=== PATIENT | male | born 2000 | race Caucasian/White ===

== ENCOUNTER 2024-04-08 11:02 | Emergency (ER) | payer OTHER ==
--- NOTE | 2024-04-08 12:42 | ED Physician Documentation ---
History of Present Illness - Stated complaint Stated Complaint: CP, N, DIZZY - Chief complaint Chief Complaint: Cardiac - Additonal information Additional information: 24-year-old male with history of anxiety and patient says a couple of the broken bones presents emergency department for left chest pain and right frontal lobe headache. Patient says last night when he is turned to fall asleep around 3 AM he started noticing some left pectoral pain. He said he tried to sleep it off but he has been having a hard time doing so he brought his kids to childcare this morning and has not been able to fall back asleep because he then started experiencing a headache to the right frontal lobe. He says he feels very off. He has no family history of sudden cardiac or anyone young in his family having any cardiac disease and he denies anything like this ever happening to him before. He has not taken any medicine for his the right headache or his chest pain. He says that he cannot think of anything strenuous that he has done to cause left chest pain. No fevers or chills no vomiting he does endorse intermittent mild nausea. PD PAST MEDICAL HISTORY - Past Medical History Past Medical History: No Cardiovascular: None Respiratory: None Neuro: None Endocrine/Autoimmune: None GI: None : None HEENT: None Psych: None Musculoskeletal: None Derm: None - Past Surgical History Past Surgical History: No - Present Medications Home Medications: Ambulatory Orders Medication Instructions Recorded Confirmed No Known Home Medications 04/08/24 04/08/24 - Allergies Allergies/Adverse Reactions: Allergies Allergy/AdvReac Type Severity Reaction Status Date / Time No Known Drug Allergies Allergy Verified 04/08/24 11:22 - Social History Does the pt smoke?: No Smoking Status: Never smoker Does the pt drink ETOH?: Yes Does the pt have substance abuse?: No - Immunizations Immunizations are current?: Yes - POLST Patient has POLST: No PD ED PE NORMAL - Vitals Vital signs reviewed: Yes - General General: Alert and oriented X 3, No acute distress, Well developed/nourished - HEENT HEENT: Atraumatic, PERRL - Neck Neck: Supple, no meningeal sign - Cardiac Cardiac: RRR, No murmur, Strong equal pulses - Respiratory Respiratory: No respiratory distress - Abdomen Abdomen: Normal bowel sounds, Soft, Non tender, Non distended, No organomegaly - Derm Derm: Normal color, Warm and dry, No rash - Neuro Neuro: Alert and oriented X 3, 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 Relevant findings are: Rate: Rate (enter#) (65) Rhythm: NSR [place]: Normal Intervals: Normal [place] QRS: Normal Ischemia: Normal ST segments Computer interpretation: Agree with computer - Labs Labs: Laboratory Tests 04/08/24 04/08/24 12:42 12:42 WBC 7.7 RBC 5.51 Hgb 16.5 Hct 48.4 MCV 87.8 MCH 29.9 MCHC 34.1 RDW 12.2 Plt Count 266 MPV 8.8 Neut # (Auto) 3.6 Lymph # (Auto) 3.3 Schley # (Auto) 0.5 Eos # (Auto) 0.2 Baso # (Auto) 0.1 Absolute Nucleated RBC 0.00 Nucleated RBC % 0.0 Sodium 139 Potassium 3.5 Chloride 103 Carbon Dioxide 31 Anion Gap 5.0 L BUN 11 Creatinine 0.9 Estimated GFR (MDRD) 103 Glucose 94 Calcium 10.0 Total Bilirubin 0.9 AST 19 ALT 18 Alkaline Phosphatase 53 Troponin I High Sens < 2.3 L Total Protein 7.4 Albumin 4.8 Globulin 2.6 Albumin/Globulin Ratio 1.8 Lipase 18 - Rads (name of study) Chest x-ray Relevant Findings:: Final report received, EMP independent interpretation of test, Other (No acute cardiopulmonary abnormalities) PD Medical Decision Making - ED course ED course: 24-year-old male presents emergency department for left-sided chest pain and headache. Exam without evidence of volume overload so doubt heart failure. EKG without signs of active ischemia. Given the timing of pain to ER presentation, single troponin was negative so doubt NSTEMI. Presentation not consistent with acute PE (PERC negative), pneumothorax (not visualized on chest xr), thoracic aortic dissection, pericarditis, tamponade, pneumonia (no infectious symptoms, clear chest xr), myocarditis (no recent illness, neg trop). HEART score: 0. Patient was given Tylenol and Toradol for his left-sided chest pain that was reproducible as well as his headache and this almost completely alleviated his symptoms of his headache as well as his left chest pain. He does not have any dizziness nor blurred vision he says that he is actually feeling significantly better and he feels comfortable to discharge at this time. He is given strict ER return precautions he is told to follow-up with his primary care provider outpatient about todays ER visit and further evaluation. Departure - Departure Disposition: Home, Self Care Clinical Impression: Chest pain Qualifiers: Chest pain type: unspecified Qualified Code(s): R07.9 - Chest pain, unspecified Headache Qualifiers: Headache type: tension-type Headache chronicity pattern: acute headache Intractability: not intractable Qualified Code(s): G44.209 - Tension-type headache, unspecified, not intractable Instructions: ED Chest Pain Atypical Unkn Cause Comments: Thank you for trusting us with your care. I believe that you would greatly benefit from more sleep. Sometimes taking something as simple as melatonin to help you get a good nights rest is a good place to start. Please follow-up with your primary care provider about today's ER visit and please have a very low threshold to come back to the ER if you have any worsening symptoms. It seems like the Toradol shot that we gave you as well as the Tylenol has significantly alleviated your headache and chest pain. Again if you are concerned about any symptoms please come back to the ER for further evaluation and workup. Forms: PCP List Discharge Date/Time: 04/08/24 14:00
--- NOTE | 2024-04-08 12:43 | XRAY Report ---
PROCEDURE: Chest 1V INDICATIONS: Chest Pain TECHNIQUE: One view of the chest was acquired. COMPARISON: None. FINDINGS: Surgical changes and devices: None. Lungs and pleura: No pleural effusions or pneumothorax. Lungs are clear. Mediastinum: Mediastinal contours appear normal. Heart size is normal. Bones and chest wall: No suspicious bony lesions. Overlying soft tissues appear unremarkable. IMPRESSION: No acute cardiopulmonary process. Reviewed by: Jose Carlos Hernandez MD on 04/08/2024 12:42 PM PDT Approved by: Jose Carlos Hernandez MD on 04/08/2024 12:42 PM PDT Station ID: [id number]
[2024-04-08 12:45] LABS: BASOPHILS # (AUTO) 0.1 10^3/uL (0.0-0.1); BASOPHILS % (AUTO) 0.8 %; EOSINOPHILS # (AUTO) 0.2 10^3/uL (0.0-0.7); EOSINOPHILS % (AUTO) 2.8 %; HCT - HEMATOCRIT 48.4 % (42.0-52.0); HGB - HEMOGLOBIN 16.5 g/dL (14.0-18.0); LYMPHOCYTES # (AUTO) 3.3 10^3/uL (1.5-3.5); LYMPHOCYTES % (AUTO) 43.1 %; MEAN CORPUSCULAR HEMOGLOBIN 29.9 pg (27.0-31.0); MEAN CORPUSCULAR HGB CONC 34.1 g/dL (32.0-36.0); MEAN CORPUSCULAR VOLUME 87.8 fL (80.0-94.0); MEAN PLATELET VOLUME 8.8 fL (7.4-11.4); MONOCYTES # (AUTO) 0.5 10^3/uL (0.0-1.0); NEUTROPHILS # (AUTO) 3.6 10^3/uL (1.5-6.6); NEUTROPHILS % (AUTO) 46.9 %; PLT - PLATELET COUNT 266 10^3/uL (130-450); RED BLOOD COUNT 5.51 10^6/uL (4.70-6.10); RED CELL DISTRIBUTION WIDTH 12.2 % (12.0-15.0); WHITE BLOOD COUNT 7.7 x10^3/uL (4.8-10.8)
[2024-04-08 13:09] LABS: TROPONIN I HIGH SENSITIVITY < 2.3 ng/L (2.3-19.7)
[2024-04-08 13:11] LABS: ALBUMIN 4.8 g/dL (3.2-5.5); ALBUMIN/GLOBULIN RATIO 1.8 (1.0-2.2); ALKALINE PHOSPHATASE 53 IU/L (42-121); ALT ALANINE AMINOTRANSFERASE 18 IU/L (10-60); AST ASPARTATE AMINOTRANSFERASE 19 IU/L (10-42); BILIRUBIN,TOTAL 0.9 mg/dL (0.2-1.0); BUN - BLOOD UREA NITROGEN 11 mg/dL (6-20); CARBON DIOXIDE - CO2 31 mmol/L (21-32); CHLORIDE 103 mmol/L (101-111); CREATININE 0.9 mg/dL (0.6-1.3); GFR - MDRD 103 (>89); GLUCOSE 94 mg/dL (74-104); LIPASE 18 U/L (11-82); POTASSIUM 3.5 mmol/L (3.5-4.5); SODIUM 139 mmol/L (135-145); TOTAL PROTEIN 7.4 g/dL (6.4-8.9)
[2024-04-08] MEDS: ONDANSETRON ODT 4 MG TABLET TL STA (13:30)
[2024-04-08] MEDS: KETOROLAC 15 MG/ML VIAL IM STA (13:30)
[2024-04-08] MEDS: ACETAMINOPHEN 500 MG TABLET PO STA (13:30)
[2024-04-08 14:01] VITALS: BP 98/65; O2SAT 100
== END 2024-04-08 14:00 | disposition home or self-care (01) ==
LOC: ED 11:02
DX: R07.9 Chest pain, unspecified (principal); G44.209 Tension-type headache, unspecified, not intractable
CPT/HCPCS: 36415; 71045; 80053; 83690; 84484; 85025; 93005; 96372; 99284; A9270; Q0162